=== PATIENT | female | born 1945 | race Two or more races ===

== ENCOUNTER → 2020-05-20 | Outpatient (CLI) | payer MEDICARE ==
--- NOTE | 2020-05-20 12:18 | RAD ---
INDICATION: Reason: PT FELL LAST WEEK, BRUISING/SWELLING TO LT LEG, PT ON WARFARIN / Spl. Instruction s: / History: COMPARISON: None. TECHNIQUE: Grayscale, color and doppler ultrasound images were obtained of the left lower extremity v enous vasculature. LEFT: No thrombus identified in the common femoral vein, femoral vein, popliteal vein or visualized calf ve ins. IMPRESSION: * No thrombus identified in deep venous system of the left lower extremity. * Edema of soft tissues. Electronically signed by: He Jacome MD (05/20/2020 12:16 PM) [id number]
== END ==
LOC: US 11:37
PROVIDERS: ATTEND Nurse Practitioner Adult Health
DX: R22.42 Localized swelling, mass and lump, left lower limb (principal); M79.605 Pain in left leg
CPT/HCPCS: 93971

== ENCOUNTER 2020-06-21 11:46 | Emergency (ER) | payer MEDICARE ==
[~2020-06-21] VITALS: Ht 152.4 cm; Wt 95.5 kg
[2020-06-21 13:11] LABS: BASO # 0.1 x10^3/uL (0.0-0.2); BASO % 1 % (0-3); EOS % 0 % (0-3); HEMATOCRIT 38.8 % (36.0-47.0); HEMOGLOBIN 12.8 g/dL (12.0-15.5); LYMPH # 1.6 x10^3/uL (1.0-4.8); LYMPH % 14 % (24-48); MEAN CORPUSCULAR HEMOGLOBIN 29 pg (25-35); MEAN CORPUSCULAR HGB CONC 33 g/dL (31-37); MEAN CORPUSCULAR VOLUME 89 fL (79-100); MONO # 0.7 x10^3/uL (0.0-1.1); MONO % 6 % (0-9); NEUT % 79 % (31-73); PLATELET COUNT 211 x10^3/uL (140-400); RED BLOOD COUNT 4.38 x10^6/uL (3.50-5.40); RED CELL DISTRIBUTION WIDTH 16.1 % (11.5-14.5); WHITE BLOOD COUNT 11.4 x10^3/uL (4.0-11.0)
[2020-06-21] MEDS ORDERED: VANCOMYCIN PER PHARMACY MC PRN (13:15)
[2020-06-21] MEDS ORDERED: PIP/TAZO PER PHARMACY MC PRN (13:15)
--- NOTE | 2020-06-21 13:28 | PHYS DOC ---
Past History Past Medical History: Diabetes, High Cholesterol, Hypertension (DONIS SCHULTZ APRN) Past Surgical History: Cholecystectomy, Hysterectomy, Other Additional Past Surgical Histo: quad bypass (DONIS SCHULTZ APRN) Alcohol Use: None (DONIS SCHULTZ APRN) Adult General Chief Complaint Chief Complaint: LOWER EXT PAIN HPI HPI Patient is a 74-year-old female presents emergency department complaining of worsening left leg skin ulcers. Patient states that she had a slip and fall into the snow on May 12, 2020, was unable to get up and laid in the snow for approximately an hour before getting assistance to get up. Patient states she seen her primary care Dr. Lee the next day. An x-ray was performed, there is no fracture and she was sent home. Patient states over the next few days she started developing skin ulcers on her left lower leg on the lateral side, stated she seen Dr. Lee again who started her on a 10-day regimen of doxycycline 100 mg twice a day on 05/20/2020. Patient states that leg ulcers have progressively became worse, has been seeing Dr. Lee at least 1 time a week or more since then for wound care. Patient states she was started on Levaquin 500 mg daily for 10 days on 06/04/2020. Then started on Keflex 500 mg twice daily on 06/06/2020. And again on 06/18/2020 was started on 500 mg Keflex 3 times daily. Patient states she is concerned that her leg wound is becoming wor se, sees areas of black tissue within the wound, reports a pain of 10/10 on a 1- 10 pain scale when ambulating, however at rest denies any pain or discomfort. Patient has reported fevers at home over the past 4 days noting her fevers between 99 and 100.4, however is taking Tylenol with codeine for pain and is not having a fever at this time. Patient reports general malaise at times, denies shortness of breath, chest pains, chest congestion, nasal congestion. Denies abdominal pain, nausea, vomiting, diarrhea or constipation. Patient denies any urinary tract infection type signs and symptoms. Patient reports a past medical history of high blood pressure, type 2 diabetes, atrial fibrillation. Patient reports a past surgical history of four-vessel cardiac bypass in 1999 with left leg saphenous vein removal, right knee replacement 1995, right foot surgery 1990, hysterectomy sometime in the 90s, receives epidurals at [facility] for chronic low back pain every 3 months. (DONIS SCHULTZ APRN) Review of Systems Review of Systems 14 body systems of review of systems have been reviewed. See HPI for pertinent positives and negative responses, otherwise all other systems are negative, nonpertinent or noncontributory. (DONIS SCHULTZ APRN) Current Medications Current Medications Patient reports current medication list as Tylenol 3 1 tablet twice daily, Keflex 500 mg 3 times daily, Lexapro 20 mg daily, amlodipine 10 mg daily, Basaglar 75 units nightly, Crestor 40 mg daily, losartan 100 mg daily, hydrochlorothiazide 25 mg daily, metoprolol 50 mg daily, Lantus insulin unknown dose, Humalog insulin unknown dose, Coumadin 4 mg daily, isosorbide 60 mg every morning Current Medications Medications (Trade) Dose Ordered Sig/Norris Start Time Stop Time Status Last Admin Dose Admin Piperacillin Sod/ Tazobactam Sod (Zosyn Per Pharmacy) 1 each PRN DAILY PRN 06/21/20 13:15 UNV Vancomycin HCl (Vanco Per Pharmacy) 1 each PRN DAILY PRN 06/21/20 13:15 UNV (DONIS SCHULTZ APRN) Allergies Allergies Allergies Uncoded Allergies Type Severity Reaction Last Updated Verified SULFA Allergy Unknown 06/21/20 TAPE Allergy Unknown 06/21/20 (DONIS SCHULTZ APRN) Physical Exam Physical Exam Constitutional: Well developed, well nourished, no acute distress, non-toxic appearance. 74-year-old female in no apparent distress. HENT: Normocephalic, atraumatic, bilateral external ears normal, oropharynx moist, no oral exudates, nose normal. Oropharynx moist, no infectious process appreciated, no lymphadenopathy of the head or neck appreciated. No trismus, no drooling. Eyes: PERRLA, EOMI, conjunctiva normal, no discharge. Neck: Normal range of motion, no tenderness, supple, no stridor. No meningismus signs, no C-spine tenderness, no nuchal rigidity appreciated. Cardiovascular:Heart rate regular rhythm, no murmur Lungs & Thorax: Bilateral breath sounds clear to auscultation all lung solomon, no adventitious lung sounds appreciated. Abdomen: Bowel sounds normal, soft, no tenderness, no masses, no pulsatile masses. Abdomen round, obese. Skin: Warm, dry, no erythema, no rash. See extremity note skin assessment. Back: No tenderness to palpation along spine or vertebral column bony prominences or adjacent musculoskeletal structures of the back. Extremities: No tenderness, no cyanosis, no clubbing, ROM intact, no edema. Except for left lower extremity, patient has 1 cm skin ulcer with 2 cm induration nondraining at distal medial left thigh, left tib-fib has 8 x 4 cm skin ulceration with irregular borders with areas of eschar, nonweeping ulcer, no definite demarcation of erythema, 2+ pitting pedal edema, 1+ pedal pulse, distal cap refill less than 2 seconds, pain with passive range of motion of left ankle. No cyanosis appreciated of the left lower extremity. Neurologic: Alert and oriented X 3, normal motor function, normal sensory function, no focal deficits noted. Psychologic: Affect normal, judgement normal, mood normal. (DONIS SCHULTZ APRN) Current Patient Data Vital Signs Vital Signs Date Time Temp Pulse Resp B/P (MAP) Pulse Ox O2 Delivery O2 Flow Rate FiO2 06/21/20 12:12 98.4 78 18 148/61 (90) 94 Lab Results Laboratory Tests Test 06/21/20 12:40 White Blood Count 11.4 x10^3/uL (4.0-11.0) H Red Blood Count 4.38 x10^6/uL (3.50-5.40) Hemoglobin 12.8 g/dL (12.0-15.5) Hematocrit 38.8 % (36.0-47.0) Mean Corpuscular Volume 89 fL (79-100) Mean Corpuscular Hemoglobin 29 pg (25-35) Mean Corpuscular Hemoglobin Concent 33 g/dL (31-37) Red Cell Distribution Width 16.1 % (11.5-14.5) H Platelet Count 211 x10^3/uL (140-400) Neutrophils (%) (Auto) 79 % (31-73) H Lymphocytes (%) (Auto) 14 % (24-48) L Monocytes (%) (Auto) 6 % (0-9) Eosinophils (%) (Auto) 0 % (0-3) Basophils (%) (Auto) 1 % (0-3) Neutrophils # (Auto) 9.0 x10^3uL (1.8-7.7) H Lymphocytes # (Auto) 1.6 x10^3/uL (1.0-4.8) Monocytes # (Auto) 0.7 x10^3/uL (0.0-1.1) Eosinophils # (Auto) 0.0 x10^3/uL (0.0-0.7) Basophils # (Auto) 0.1 x10^3/uL (0.0-0.2) (DONIS SCHULTZ APRN) EKG EKG EKG performed at 1359 by house respiratory therapy staff, shows a normal sinus rhythm without ectopy heart rate 70 bpm, MI interval 0.150, QTc interval 0.457, no acute STEMI, no ACS, no acute ischemia appreciated, EKG interpreted by ED attending physician Dr. Barboza. (DONIS SCHULTZ APRN) Radiology/Procedures Radiology/Procedures [] PATIENT: KELSIE DEMPSEY ACCOUNT: [id number] : 1945 LOCATION: ER AGE: 74 SEX: F EXAM STATUS: REG ER ORD. PHYSICIAN: DONIS SCHULTZ APRN REASON: R/O SUBCUTANEOUS AIR,OSTEOMYELITIS, fall 05/24 PROCEDURE: LEFT FEMUR XRAY Exam performed: X-ray left femur, left tibia fibula, left ankle and left foot HISTORY: Fall in May, pain. DATE OF SERVICE:: 06/21/2020. COMPARISON: None available FINDINGS: AP and lateral view of the left femur demonstrates degenerative changes involving the left hip and knee joint. There is no acute fracture or dislocation. Diffuse vascular calcification is seen. AP and lateral view of the left tibia-fibula demonstrates degenerative changes about the knee and ankle joint. There is no acute fracture or dislocation. Extensive vascular calcification is noted. AP, lateral and oblique views of the left foot and ankle demonstrates normal alignment of the foot and ankle. There is no acute fracture or dislocation. There is diffuse soft tissue swelling. No foreign body. IMPRESSION: Diffuse soft tissue swelling around the left foot and ankle without underlying bony abnormality. Degenerative changes involving the left knee and hip. No acute abnormality seen in the femur and tibia fibula. Electronically signed by: Nataliia Patel MD (06/21/2020 1:57 PM) [facility] DICTATED AND SIGNED BY: NATALIIA PATEL MD DATE: 06/21/20 1345 CC: DONIS SCHULTZ APRN; GAUDENCIO BEE MD; BI BARBOZA DO ~MTH0 0 PATIENT: KELSIE DEMPSEY ACCOUNT: [id number] : 1945 LOCATION: ER AGE: 74 SEX: F EXAM STATUS: REG ER ORD. PHYSICIAN: DONIS SCHULTZ APRN REASON: HYPOXIA AFTER VOMITING PROCEDURE: CHEST PA & LATERAL XR CHEST 2V INDICATION: HYPOXIA AFTER VOMITING / Spl. Instructions: / History: . COMPARISON STUDY: 04/24/2012. FINDINGS: Lungs: Normal lung volume. No pulmonary mass or consolidation. The tracheobronch ial tree and hilar structures are normal. Pleura: No pleural effusion or pneumothorax. Heart and Mediastinum: Cardiomegaly. Atherosclerotic thoracic aorta. IMPRESSION: No consolidation. Electronically signed by: Moriah Rich MD (06/21/2020 3:44 PM) [facility] DICTATED AND SIGNED BY: MORIAH RICH MD DATE: 06/21/20 1544 CC: DONIS SCHULTZ APRN; GAUDENCIO BEE MD; BI BARBOZA DO ~MTH0 0 (DONIS SCHULTZ APRN) Heart Score C/O Chest Pain: No Risk Factors: Risk Factors: DM, Current or recent (<one month) smoker, HTN, HLP, family history of CAD, obesity. Risk Scores: Risk Factors: DM, Current or recent (<one month) smoker, HTN, HLP, family history of CAD, obesity. (DONIS SCHULTZ APRN) Course & Med Decision Making Course & Med Decision Making Pertinent Labs and Imaging studies reviewed. (See chart for details) 74-year-old female, vital signs reviewed, presents to the emergency department concerning of left leg wound. Physical examination concerning for worsening infectious skin ulcers concerning for cellulitis versus necrotizing fasciitis. And ED work-up was initiated, x-ray imaging to rule out subcu air/osteomyelitis, blood cultures x2, DIC panel, type and cross, CBC, CMP, wound cultures, lactic acid panel. Will empirically start vancomycin IV and Zosyn IV. Discussed with patient ED planning of work-up of her skin ulcers with most likely admission to [facility] for wound care consult and/or surgical consult. Patient is amenable to this plan. Pending lab results and x-ray results at this time. Patient's lactic acid 2.2, discussed with ED attending Dr. Barboza who recommended 1 L of normal saline only related to patient's cardiac history. Potassium 2.8, will order 40 p.o. potassium, C-reactive protein equals 157.1, antibiotics ordered. ED nurse states patient vomited potassium immediately after ingestion. Patient was given 4 mg IV Zofran, will wait a period of time and readminister 40 equivalents of p.o. potassium chloride tablet. ED nurse also states patient's oxygen saturation dropped from 94% on room air down to 87% on room air, patient did not complain of any shortness of breath or congestion, reevaluation of patient and lung sounds found patient to be in no apparent distress, is not toxic in appearance, lung sounds were clear to auscultation all lung solomon without adventitious lung sounds appreciated, will order O2 per nasal cannula to keep sat above 90%, PA and lateral chest to rule out aspiration pneumonia. Discussed patient case with [facility] inpatient management Dr. Vaca who has agreed to accept patient as full admission to [facility] for diagnosis of diabetic skin ulcer not responding to outpatient antibiotic therapy and outpatient wound care with the information he was given by me. Patient is amendable to transfer to [facility] for inpati ent management and other specialty evaluation consult such as wound care and/or infectious disease. Dr. Vaca has assumed patient care at this time pending transfer to [facility]. (DONIS SCHULTZ APRN) Course & Med Decision Making I oversaw care of patient while in ER. I personally saw patient and repeated aspects of history of physical exam Patient has poorly controlled DM (HA1C ~11%) and a worsening LLE ulcer that has been unresponsive to outpatient antibiotic treatment. Will need transfer for inpatient antibiotics and surgical consultation. Nausea and vomit 2/2 size of KDur pill. Also has supratherapeutic INR (goal 2-3 for afib) This patient required critical care. Due to the fact that the patient required a significant amount of one on one physician patient contact time, ordering and review of studies, arranging urgent treatment with development of a management plan, evaluation of patients response to treatment with frequent reassessments, and discussions with other providers this patient required critical care time 40 Critical care time was indicated due to the inherent instability and/or potential for instability in this patient. The critical care time that is allocated to this patient is above and beyond any time spent on any other billable procedures performed on this patient. (BI BARBOZA DO) Dragon Disclaimer Dragon Disclaimer This electronic medical record was generated, in whole or in part, using a voice recognition dictation system. (DONIS SCHULTZ APRN) Departure Departure: Impression: Primary Impression: Diabetic skin ulcer Additional Impressions: Uncontrolled type 2 diabetes mellitus Hypokalemia Supratherapeutic INR Disposition: 02 DC/TRF OTHER SHORT TERM HOS (Patient transferred to [facility] for direct admission to Dr. Vaca) Admitting Physician: Other (DR VACA) (BI BARBOZA DO) Condition: STABLE Referrals: GAUDENCIO BEE MD (PCP) Problem Qualifiers DONIS SCHULTZ APRN Jun 21, 2020 13:28 BI BARBOZA DO Jun 21, 2020 20:23
[2020-06-21] MEDS ORDERED: PIPERACILLIN/TAZOBACTAM 4.5 GM in IV NORMAL SALINE 50ML 50 ML IV ONE (13:30)
[2020-06-21 13:31] LABS: ALBUMIN 2.8 g/dL (3.4-5.0); ALBUMIN/GLOBULIN RATIO 0.7 (1.0-1.7); CALCIUM 8.8 mg/dL (8.5-10.1); CREATININE 1.1 mg/dL (0.6-1.0); GFR 48.3; TOTAL BILIRUBIN 0.6 mg/dL (0.2-1.0); TOTAL PROTEIN 6.9 g/dL (6.4-8.2)
[2020-06-21 13:34] LABS: POTASSIUM 2.8 mmol/L (3.5-5.1)
--- NOTE | 2020-06-21 13:59 | RAD ---
Exam performed: X-ray left femur, left tibia fibula, left ankle and left foot HISTORY: Fall in May, pain. DATE OF SERVICE:: 06/21/2020. COMPARISON: None available FINDINGS: AP and lateral view of the left femur demonstrates degenerative changes involving the left hip and kn ee joint. There is no acute fracture or dislocation. Diffuse vascular calcification is seen. AP and lateral view of the left tibia-fibula demonstrates degenerative changes about the knee and ank le joint. There is no acute fracture or dislocation. Extensive vascular calcification is noted. AP, lateral and oblique views of the left foot and ankle demonstrates normal alignment of the foot an d ankle. There is no acute fracture or dislocation. There is diffuse soft tissue swelling. No foreign body. IMPRESSION: Diffuse soft tissue swelling around the left foot and ankle without underlying bony abnormality. Degenerative changes involving the left knee and hip. No acute abnormality seen in the femur and tibi a fibula. Electronically signed by: Nataliia Patel MD (06/21/2020 1:57 PM) [facility]
[2020-06-21] MEDS ORDERED: VANCOMYCIN 2 GM in IV NORMAL SALINE 500ML 500 ML IV ONE (14:00)
[2020-06-21] MEDS ORDERED: IV NORMAL SALINE 50ML 50 ML ONE (14:00)
[2020-06-21] MEDS ORDERED: POTASSIUM CHLORIDE 20 MEQ TABLET.ER. PO ONE (14:00)
[2020-06-21] MEDS ORDERED: IV NORMAL SALINE 1,000ML 1,000 ML IV ONE (14:00)
[2020-06-21] MEDS ORDERED: PIPERACILLIN/TAZOBACTAM 4.5 GM VIAL IV ONE (14:01)
--- NOTE | 2020-06-21 14:14 | EKG ---
[address] [address] Test Date: 2020-06-21 Test Time: 13:59:18 Pat Name: KELSIE DEMPSEY Department: Room: Gender: F Goods Layer: : 1945 Requested By: DONIS SCHULTZ Order Number: [id number] Reading MD: Measurements Intervals [place] Rate: 70 P: 29 VT: 150 QRS: 9 QRSD: 94 T: 121 QT: 420 QTc: 457 Interpretive Statements SINUS RHYTHM ST & T ABNORMALITY, CONSIDER HIGH LATERAL ISCHEMIA OR LEFT VENTRICULAR STRAIN T ABNORMALITY IN ANTERIOR LEADS ABNORMAL ECG RI6.02 No previous ECG available for comparison
[2020-06-21] MEDS ORDERED: ONDANSETRON PF 4 MG/2 ML VIAL. ONE (14:16)
[2020-06-21] MEDS ORDERED: POTASSIUM CHLORIDE 10 MEQ TABLET.ER. PO ONE (14:30)
[2020-06-21] MEDS ORDERED: ONDANSETRON PF 4 MG/2 ML VIAL. IVP ONE (14:30)
[2020-06-21 14:32] VITALS: BP 144/52
--- NOTE | 2020-06-21 15:47 | RAD ---
XR CHEST 2V INDICATION: HYPOXIA AFTER VOMITING / Spl. Instructions: / History: . COMPARISON STUDY: 04/24/2012. FINDINGS: Lungs: Normal lung volume. No pulmonary mass or consolidation. The tracheobronchial tree and hilar st ructures are normal. Pleura: No pleural effusion or pneumothorax. Heart and Mediastinum: Cardiomegaly. Atherosclerotic thoracic aorta. IMPRESSION: No consolidation. Electronically signed by: Kaiden Rich MD (06/21/2020 3:44 PM) [facility]
== END 2020-06-21 16:36 | disposition short-term general hospital (02) ==
LOC: ER 11:46
DX: E11.65 Type 2 diabetes mellitus with hyperglycemia (principal); E11.622 Type 2 diabetes mellitus with other skin ulcer; L97.129 Non-pressure chronic ulcer of left thigh with unspecified severity; L97.229 Non-pressure chronic ulcer of left calf with unspecified severity; E87.6 Hypokalemia; E78.00 Pure hypercholesterolemia, unspecified; I10 Essential (primary) hypertension; Z20.822 Contact with and (suspected) exposure to COVID-19; Z88.2 Allergy status to sulfonamides; Z88.8 Allergy status to other drugs, medicaments and biological substances
CPT/HCPCS: 36415; 71046; 73552; 73590; 73610; 73630; 80053; 83605; 85025; 85049; 85379; 85384; 85610; 85651; 85730; 86140; 86850; 86900; 86901; 87040; 87070; 87426; 93005; 96365; 96366; 96367; 96375; 99285; C9803; J2405; J2543; J3370; J7030; J7040; U0003; 96368